=== PATIENT | female | born 1965 | race Caucasian/White ===

== ENCOUNTER 2018-02-27 20:24 | Observation (INO) | payer OTHER ==
--- NOTE | 2018-02-27 21:20 | RAD ---
EXAM: CHEST ONE VIEW PORTABLE: 02/27/18 HISTORY: 52-year-old female with history of chest pain. Surgical clips are noted in the region of the AP window with what appears to be a somewhat high posit ioned aortic knob although this is stable and unchanged dating back to old exams from 08/30/17. Heart s ize is within normal limits. The lungs are clear. IMPRESSION: Postsurgical changes possibly within the AP window region with a somewhat high riding aortic knob but overall stable. No acute process. POS: SHOAIB
[2018-02-27 21:40] LABS: Hemoglobin 10.2 g/dL (12.0-16.0); Mean Corpuscular HGB CONC 31.7 g/dL (32.0-36.0); Mean Corpuscular Hemoglobin 22.1 pg (27.0-31.0); Mean Corpuscular Volume 69.7 fL (78.0-98.0); Mean Platelet Volume 8.6 fL (7.4-10.4); Platelet Count 309 thou/uL (130-400); RBC Distribution Width 19.8 % (11.5-14.5); Red Blood Cell (RBC) Count 4.63 mill/uL (4.20-5.40); White Blood Cell (WBC) Count 9.6 thou/uL (4.8-10.8)
[2018-02-27 21:54] LABS: #Eosinphils 0.1 thou/uL (0.0-0.7); #Lymphocytes 1.3 thou/uL (1.20-3.40); #Monocytes 0.5 thou/uL (0.11-0.59); #Neutrophils 7.6 thou/uL (1.40-6.50); %Basophils 0.1 % (0.0-1.0); %Eosinophils 0.9 % (0.0-10.0); %Lymphocytes 13.9 % (21.0-51.0); %Monocytes 5.2 % (0.0-10.0); %Neutrophils 79.8 % (42.0-75.0); ALT (SGPT) 8 U/L (8-55); AST (SGOT) 8 U/L (5-34); Albumin 3.7 g/dL (3.5-5.0); Alkaline Phosphatase 103 U/L (40-150); Anion Gap 13 mmol/L (10-20); Anisocytosis SLIGHT = 6-15 cells (100X) (0-5/hpf); BUN (Urea Nitrogen) 22 mg/dL (7.0-18.7); Bilirubin, Total 0.3 mg/dL (0.2-1.2); CK (CPK) 18 U/L (29-168); Calc. Creatinine Clearance 0 mL/min (70-130); Calcium 9.2 mg/dL (7.8-10.44); Carbon Dioxide 22 mmol/L (22-29); Chloride 107 mmol/L (98-107); Estimated GFR-MDRD 45; Globulin 3.9 g/dL (2.4-3.5); Glucose 161 mg/dL (70-105); Hypochromia SLIGHT = 6-15 cells (100X) (0-5/hpf); Lipase 51 U/L (8-78); MDiff Complete? YES; Microcytosis SLIGHT = 6-15 cells (100X) (0-5/hpf); Potassium 4.6 mmol/L (3.5-5.1); Protein, Total 7.6 g/dL (6.0-8.3); Sodium 137 mmol/L (136-145)
[2018-02-28] MEDS ORDERED: Zolpidem Tartrate 5 MG TAB PO PRN (00:13)
[2018-02-28] MEDS ORDERED: Acetaminophen 325 MG TAB PO PRN (00:13)
[2018-02-28] MEDS ORDERED: Senokot S 8.6-50 MG TAB PO PRN (00:13)
[2018-02-28] MEDS ORDERED: Loperamide HCl 2 MG CAP PO PRN (00:13)
[2018-02-28] MEDS ORDERED: Bisacodyl 5 MG TAB PO PRN (00:13)
[2018-02-28] MEDS ORDERED: Ondansetron ODT 4 MG TAB PO PRN (00:13)
[2018-02-28] MEDS ORDERED: Bisacodyl 10 MG SUPP PR PRN (00:13)
[2018-02-28] MEDS ORDERED: HYDROcodone/Acetaminophen 5/325 mg Tablet PO PRN (00:13)
[2018-02-28] MEDS ORDERED: Calcium Carbonate 500 MG ChewTAB PO PRN (00:13)
[2018-02-28] MEDS ORDERED: Ondansetron PF 4 MG/2 ML Vial IVP PRN (00:13)
[2018-02-28] MEDS ORDERED: Pepto Bismol Chew TAB PO PRN (00:26)
[2018-02-28] MEDS ORDERED: Loratadine 10 MG TAB PO PRN (00:26)
[2018-02-28 00:27] VITALS: BMI 49.6
--- NOTE | 2018-02-28 00:55 | HP ---
PRIMARY CARE PHYSICIAN: [facility] Call admission. REASON FOR ADMISSION: Chest pain. HISTORY OF PRESENT ILLNESS: This is a 52-year-old female, who has multiple medical problems including hypertension, anxiety, depression, gastroesophageal reflux disease, asthma, dyslipidemia, and morbid obesity who presented to emergency room with complaint of chest pain. The patient's chest pain is substernal in location, heaviness in nature, 5/10 in intensity, started after moving furniture at home, lasted for a few minutes and subsided by itself after rest. The patient lately having recurrent exertion-related chest pain. She denies any palpitation, syncope. Today, she was feeling lightheadedness. She was having a little bit diaphoresis. She did not have any syncopal episodes. She denies any orthopnea, PND, or leg swelling. The patient does have history of coronary artery disease and she has not seen her appeals and generalist clerk for several years. The patient was resisting to come to the hospital, but the family member insisted to visit emergency room. When she came to emergency room, the patient's pain was completely subsided. In the emergency room, routine blood test showed microcytic anemia. Her chest x-ray was unremarkable. REVIEW OF SYSTEMS: CONSTITUTIONAL: Negative for weight loss or gain, ability to conduct usual activities. SKIN: Negative for rash, itching. EYES: Negative for double vision, pain. ENT/MOUTH: Negative for nose bleeding, neck stiffness, pain, tenderness. CARDIOVASCULAR: Negative for palpitations, dyspnea on exertion, orthopnea. RESPIRATORY: Negative for shortness of breath, wheezing, cough, hemoptysis, fever or night sweats. GASTROINTESTINAL: Negative for poor appetite, abdominal pain, heartburn, nausea, vomiting, constipation, or diarrhea. GENITOURINARY: Negative for urgency, frequency, dysuria, nocturia. MUSCULOSKELETAL: Negative for pain, swelling. NEUROLOGIC/PSYCHIATRIC: Negative for anxiety, depression. ALLERGY/IMMUNOLOGIC: Negative for skin rash, bleeding tendency. Please see my HPI for pertinent positives and negatives. All other review of systems reviewed and negative except as mentioned in HPI. PAST MEDICAL HISTORY: 1. Chronic iron-deficiency anemia. 2. Morbid obesity. 3. Hypertension. 4. Dyslipidemia. 5. Asthma. 6. History of coronary artery disease. PAST SURGICAL HISTORY: The patient has patent ductus arteriosus repaired when she was kid, tubal ligation, left ankle surgery. PAST PSYCHIATRIC HISTORY: Anxiety, depression, and bipolar disorder. SOCIAL HISTORY: The patient lives at home. No history of tobacco, alcohol, or illicit drug abuse. FAMILY HISTORY: No family history of coronary artery disease, stroke, or cancer. ALLERGIES: CODEINE, NITROGLYCERIN, AND TRILEPTAL. CURRENT HOME MEDICATION: 1. Lisinopril 10 mg daily. 2. Prozac 60 mg daily. 3. Claritin 10 mg daily. 4. Ranitidine 150 mg b.i.d. 5. Pepto-Bismol p.r.n. 6. Singular 10 mg daily. 7. Flexeril 10 mg t.i.d. p.r.n. 8. Pravastatin 10 mg p.o. at bedtime. 9. Diclofenac topical application b.i.d. p.r.n. EMERGENCY ROOM COURSE: Reviewed. PHYSICAL EXAMINATION: VITAL SIGNS: Currently blood pressure 114/62, pulse 92, respiratory rate 18, temperature 98.5, saturation 100% on room air and weight 127 kg. GENERAL: The patient is currently alert, awake. No obvious acute distress. HEENT: Head; normocephalic, atraumatic. Eyes; pupils round and reactive to light. Extraocular muscle intact. ENT; oropharynx within normal limits. Moist mucous membranes. No oral lesion. No pharyngeal erythema. No exudate. NECK: Supple. No JVD. No thyromegaly. No carotid bruit. No jugular venous distention. LUNGS: Clear to auscultation without any rhonchi or rales. CARDIAC: S1, S2. Regular without any murmur. No gallop. No rub. ABDOMEN: Obesity present. Bowel sounds present. Nontender. Nondistended. No organomegaly. No mass. No suprapubic tenderness. BACK: Unremarkable. No CVA tenderness. EXTREMITIES: Upper extremities; passive movement of all joints are normal. Lower extremities; no edema. Good distal pulsation. No calf tenderness. SKIN: No skin rash. Pale skin noted. NEUROLOGIC: Nonfocal examination. SIGNIFICANT LABORATORY DATA: EKG showing sinus tachycardia. A chest x-ray based on my review, no acute cardiopulmonary process. CBC; WBC 9.6, hemoglobin 10.2, MCV 69.7, platelets 309. BMP; sodium 137, potassium 4.6, chloride 107, carbon dioxide 22, BUN 22, creatinine 1.27, glucose 161, calcium 9.2. LFTs; AST 8, ALT 8, alkaline phosphatase 103, albumin 3.7. Cardiac enzyme negative. BNP less than 10. Lipase 51. Chest x-ray based on my review, no acute cardiopulmonary process. ASSESSMENT/PLAN: 1. Chest pain. The patient's chest pain description is atypical based on probably based on her age and sex, probability of coronary artery disease is mild to moderate. We will need to rule out acute coronary syndrome. We will do serial cardiac enzyme x3. We will check lipid profile tomorrow morning for restrictive occasion. We will perform exercise Cardiolite stress test tomorrow morning for diagnostic reason. Check lipid profile tomorrow morning for risk stratification. Meanwhile, we will continue with aspirin 325 mg p.o. daily. 2. Iron deficiency anemia. We will check ferritin level. If ferritin level is low, then we will consider iron infusion tomorrow. Continue ferrous sulfate 325 mg p.o. daily. 3. Asthma. Continue DuoNeb q.6 hours p.r.n. and continue Singulair 10 mg daily. 4. Hypertension. Continue lisinopril 10 mg p.o. at bedtime. 5. Dyslipidemia. Continue pravastatin 10 mg p.o. nightly and check lipid profile tomorrow morning. 6. Anxiety and depression. Continue fluoxetine 60 mg p.o. at bedtime. 7. Morbid obesity with BMI of 49. Dietary education given. Weight loss education given. Healthy lifestyle measure discussed with the patient. 8. Chronic low back pain. Continue Flexeril 10 mg t.i.d. p.r.n. 9. Deep venous thrombosis prophylaxis, not needed because we are expecting discharge in 24 hours. 10. Gastrointestinal prophylaxis. Pepcid 20 mg p.o. b.i.d. CODE STATUS: The patient is full code. The patient does not have any surrogate decision maker. DISPOSITION/PLAN: Based on clinical course, likely within 24 hours. Plan of care discussed with the patient and family member at bedside. Job ID: [id number]
[2018-02-28 01:07] LABS: Troponin I Less than 0.010 ng/mL (< 0.028)
[2018-02-28] MEDS ORDERED: FLUoxetine HCl 20 MG CAP PO SCH ×2 (01:30→21:00)
[2018-02-28 03:57] LABS: Cardiac Risk 3.8 (Less than 4.5)
[2018-02-28 04:01] LABS: Troponin I Less than 0.010 ng/mL (< 0.028)
[2018-02-28] MEDS ORDERED: Nitroglycerin 2% Ointment 1 INCH/1 GM Packet TOP SCH (06:00)
[2018-02-28] MEDS: Ferrous Sulfate 325 MG TAB PO SCH (07:50)
[2018-02-28] MEDS: Cyclobenzaprine 10 MG TAB PO SCH ×3 (07:50→20:58)
[2018-02-28] MEDS: Aspirin 325 MG TAB PO SCH (07:50)
[2018-02-28] MEDS: Famotidine 20 MG TAB PO SCH ×2 (07:50→20:58)
[2018-02-28] MEDS: Montelukast Sodium 10 mg Tablet PO SCH (07:51)
[2018-02-28] MEDS ORDERED: Regadenoson 0.4 MG/5 ML SYRINGE ONE (09:18)
--- NOTE | 2018-02-28 20:14 | PDOC.PN ---
- Subjective Encounter Start Date: 02/28/18 Encounter Start Time: 09:45 Subjective: Patient examined -: Denies current chest pain, SOB -: Denies complaints - Objective Resuscitation Status - Order Detail: 02/27/18 22:19 Resuscitation Status Routine Resuscitation Status: FULL: Full Resuscitation Vital Signs & Weight: Vital Signs (12 hours) Temp Pulse Resp BP Pulse Ox 02/28/18 19:31 98.5 F 106 H 16 121/58 L 100 02/28/18 15:13 98.4 F 96 16 131/56 L 95 02/28/18 12:00 98.6 F 104 H 16 126/58 L 98 Weight Weight 127.097 kg I&O: 02/27/18 02/28/18 03/01/18 06:59 06:59 06:59 Intake Total 240 800 Balance 240 800 Result Diagrams: 02/27/18 21:20 02/27/18 21:20 Additional Labs: Accuchecks 02/28/18 02/28/18 16:27 03:30 POC Glucose 152 H 138 H Phys Exam - Physical Examination HEENT: PERRLA, moist MMs Neck: no nodes, no JVD Respiratory: no wheezing, clear to auscultation bilateral Cardiovascular: RRR Gastrointestinal: soft, non-tender Musculoskeletal: no edema, pulses present Neurological: non-focal, normal sensation Lymphatic: no nodes Psychiatric: normal affect, A&O x 3 Skin: no rash, normal turgor Dx/Plan (1) Chest pain Code(s): R07.9 - CHEST PAIN, UNSPECIFIED Status: Acute (2) HTN (hypertension) Code(s): I10 - ESSENTIAL (PRIMARY) HYPERTENSION Status: Chronic (3) GERD (gastroesophageal reflux disease) Code(s): K21.9 - GASTRO-ESOPHAGEAL REFLUX DISEASE WITHOUT ESOPHAGITIS Status: Chronic - Plan cont current plan of care Will have resting stress test in AM -: Will repeat labs, trend VS -: Francisco NIEVES tomorrow if stress test is negative * .
[2018-02-28] MEDS ORDERED: Pravastatin Sodium 20 MG TAB PO SCH (21:00)
[2018-02-28] MEDS ORDERED: Lisinopril 10 MG TAB PO SCH (21:00)
[2018-03-01 05:11] LABS: #Eosinphils 0.2 thou/uL (0.0-0.7); #Lymphocytes 1.7 thou/uL (1.20-3.40); #Monocytes 0.5 thou/uL (0.11-0.59); #Neutrophils 4.4 thou/uL (1.40-6.50); %Basophils 0.4 % (0.0-1.0); %Eosinophils 2.9 % (0.0-10.0); %Lymphocytes 25.2 % (21.0-51.0); %Monocytes 7.4 % (0.0-10.0); %Neutrophils 64.1 % (42.0-75.0); Hemoglobin 9.8 g/dL (12.0-16.0); Mean Corpuscular HGB CONC 31.6 g/dL (32.0-36.0); Mean Corpuscular Hemoglobin 22.4 pg (27.0-31.0); Mean Corpuscular Volume 70.7 fL (78.0-98.0); Mean Platelet Volume 9.3 fL (7.4-10.4); Platelet Count 252 thou/uL (130-400); RBC Distribution Width 19.1 % (11.5-14.5); Red Blood Cell (RBC) Count 4.37 mill/uL (4.20-5.40); White Blood Cell (WBC) Count 6.8 thou/uL (4.8-10.8)
[2018-03-01 05:35] LABS: ALT (SGPT) 9 U/L (8-55); AST (SGOT) 8 U/L (5-34); Albumin 3.4 g/dL (3.5-5.0); Alkaline Phosphatase 94 U/L (40-150); Anion Gap 9 mmol/L (10-20); BUN (Urea Nitrogen) 21 mg/dL (7.0-18.7); Bilirubin, Total 0.3 mg/dL (0.2-1.2); Calc. Creatinine Clearance 126 mL/min (70-130); Calcium 9.2 mg/dL (7.8-10.44); Carbon Dioxide 24 mmol/L (22-29); Chloride 104 mmol/L (98-107); Estimated GFR-MDRD 53; Globulin 3.4 g/dL (2.4-3.5); Glucose 140 mg/dL (70-105); Potassium 4.3 mmol/L (3.5-5.1); Protein, Total 6.8 g/dL (6.0-8.3); Sodium 133 mmol/L (136-145)
[2018-03-01] MEDS: Famotidine 20 MG TAB PO SCH (07:51)
[2018-03-01] MEDS: Ferrous Sulfate 325 MG TAB PO SCH (07:51)
[2018-03-01] MEDS: Aspirin 325 MG TAB PO SCH (07:51)
[2018-03-01] MEDS: Montelukast Sodium 10 mg Tablet PO SCH (07:51)
[2018-03-01] MEDS: Cyclobenzaprine 10 MG TAB PO SCH (07:51)
--- NOTE | 2018-03-01 12:01 | NM ---
NUCLEAR MEDICINE CARDIAC STRESS TEST WITH EJECTION FRACTION: HISTORY: Chest pain. RI. Coronary artery disease. Hypertension. Dyslipidemia. COMPARISON: None. FINDINGS: Stress and rest performed after the intravenous administration of 31.6 and 29 mCi technetium-99m sest amibi, respectively. No evidence of scar or ischemia. Ejection fraction 60%. Normal wall motion. IMPRESSION: Normal exam. POS: SHOAIB
[2018-03-01 12:03] VITALS: BP 103/56; TEMP 98.4
--- NOTE | 2018-03-02 01:35 | DIS ---
DATE OF ADMISSION: 02/27/2018 DATE OF DISCHARGE: 03/01/2018 PRIMARY CARE PHYSICIAN: Matti Aj MD. CONSULTANTS: None. CODE STATUS: Full. PROCEDURES: The patient had a chest x-ray. No acute process. The patient had a nuclear stress test, which showed no evidence of scar or ischemia. Ejection fraction 60%. Normal wall motion. Impression was normal exam. DISCHARGE DIAGNOSES: 1. Chest pain, atypical. 2. Iron deficiency anemia. We will continue the ferrous sulfate 325 mg. 3. Asthma. Continue her home medications. 4. Hypertension. 5. Dyslipidemia. 6. Anxiety and depression. 7. Morbid obesity. 8. Chronic low back pain. REVIEW OF SYSTEMS: The patient was examined prior to discharge and denying any complaints. Denies any headache, chest pain, palpitations, shortness of breath, abdominal pain, and is anxious to return home. All other systems were reviewed and negative unless mentioned in the hospital course. PHYSICAL EXAMINATION: VITAL SIGNS: Temperature is 98.8, pulse is 102, O2 sats are 95% on room air, blood pressure 103/56, 119/58 earlier this morning. CONSTITUTIONAL: The patient appears nontoxic. The patient is pacing in the room, appears pain free. He is alert and oriented to person, place, and time. HEAD AND EYES: Head is atraumatic and normocephalic. Eyes, pupils are equal, round, and reactive to light. Extraocular muscles are intact. ENT: Mouth exam is normal. Mucous membranes are moist. NECK: Normal range of motion. Trachea is midline. RESPIRATORY/CHEST: breath sounds are clear. No signs of respiratory distress. CARDIOVASCULAR: Heart sounds are normal. ABDOMEN: Nontender. Bowel sounds are heard. BACK: Normal inspection. Normal range of motion. EXTREMITIES: Upper extremity, normal inspection. Normal range of motion. Motor strength is normal. Sensation is intact. Lower extremity, normal inspection. Normal range of motion. Motor strength is normal. Sensation is intact. Pedal pulses are normal bilaterally. There is no edema noted. NEURO: The patient is oriented to person, place, and time. No focal motor or sensory deficits. SKIN: Warm, dry, and normal in color. HOSPITAL COURSE: The patient presented to the emergency room on 02/27/2018 for chest pain. The patient reports that she was moving furniture when she began having the chest pain. By the time EMS arrived, it had resolved. They gave her aspirin, transported her to the emergency room where she was continued a workup. She stated that the chest pain was associated with some nausea and shortness of breath. Currently, all is resolved. The patient had serial troponins where troponins were undetectable. The patient had a stress test, findings above, which was negative. The patient was eager to return home. The patient should follow up with primary care within the next week. MEDICATIONS: Home medications will be restarted: 1. Aspirin 81 mg p.o. b.i.d. 2. Bismuth 262 mg p.o. daily. 3. Flexeril 10 mg p.o. t.i.d. 4. Fluoxetine 60 mg p.o. at night. 5. Lisinopril 10 mg p.o. at night. 6. Loratadine 10 mg p.o. p.r.n. 7. Singular 10 mg p.o. daily. 8. Pravastatin 10 mg p.o. at night. 9. Tizanidine 150 mg p.o. b.i.d. 10. We will start Protonix 40 mg p.o. daily x2 weeks. ALLERGIES: INCLUDE: 1. CODEINE. 2. NITROGLYCERIN. 3. OXCARBAZEPINE. DISCHARGE CONDITION: Stable. DISPOSITION: The patient will be discharged home. DISCHARGE INSTRUCTIONS: The patient should follow up with Dr. Aj within the next week. Job ID: [id number]
== END 2018-03-01 14:31 | disposition home or self-care (01) ==
LOC: EEVIPCON 20:24 → ERS 20:24 → 2SW 22:07
PROVIDERS: ADMIT Internal Medicine; ATTEND Internal Medicine
DX: R07.89 Other chest pain (principal); D50.9 Iron deficiency anemia, unspecified; J45.909 Unspecified asthma, uncomplicated; I10 Essential (primary) hypertension; E78.5 Hyperlipidemia, unspecified; F31.9 Bipolar disorder, unspecified; F41.9 Anxiety disorder, unspecified; E66.01 Morbid (severe) obesity due to excess calories; Z68.43 Body mass index [BMI] 50.0-59.9, adult; I25.10 Atherosclerotic heart disease of native coronary artery without angina pectoris; K21.9 Gastro-esophageal reflux disease without esophagitis; Z98.51 Tubal ligation status; Z88.5 Allergy status to narcotic agent; Z88.8 Allergy status to other drugs, medicaments and biological substances; Z79.899 Other long term (current) drug therapy; Z98.890 Other specified postprocedural states; Z79.82 Long term (current) use of aspirin
CPT/HCPCS: 36415; 36416; 71045; 78452; 80053; 80061; 82550; 82728; 83690; 83880; 84484; 85025; 90471; 90686; 93005; 93017; 94760; A9500; G0008; G0378; J2785

== ENCOUNTER 2018-04-22 15:54 | Outpatient (CLI) | payer OTHER ==
[~2018-04-22 15:54] MED LIST: Iopamidol 370 76% 100 ML VIAL ONE
--- NOTE | 2018-04-22 18:46 | CT ---
CT OF THE THORAX WITH AND WITHOUT IV CONTRAST 04/22/18 INDICATION: Evaluate pulmonary nodules. COMPARISON: None. FINDINGS: There is an enhancing partially cystic, partially solid, partially calcified mass within the anterior mediastinum, anterior to the great vessels of the neck, but separate from the thyroid gland, measuri ng 6.0 x 6.4 x 3.9 cm in greatest cranial-caudad, mediolateral and AP dimensions respectively. The le kyle is causing some mild inferior mass effect on the traversing left brachiocephalic vein. There is a few mildly prominent prevascular lymph nodes, the largest measuring 8 mm on image 21 of se silvana 3. No pathologically enlarged lymph nodes are evident. There is mild nonspecific subsegmental volume loss within the lingula as well as portions of the lowe r lobes and posterior segment of the right upper lobe. The visualized upper abdomen demonstrates no e nlarged lymphadenopathy or splenomegaly. The spleen measures just over 12 cm. There is a prominent ga llstone within the gallbladder. There are scattered degenerative and osteoarthritic change. IMPRESSION: 1. 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 This lesion does appears to have a fat plane it from the lower aspect of the thyroid gland. Differential considerations include entities such as a thymoma or possi asya a germ cell tumor. Lymphoma is not entirely excluded. Substernal thyroid goitier is felt to be un likely. Metastatic disease is not entirely excluded. Cardiothoracic surgical consultation is recommen ded. 2. Nonspecific scattered areas of subsegmental volume loss within both lungs. No suspicious pulm onary nodule is identified. There is a calcified granuloma in the right upper lobe. 3. Small hiatal hernia. 4. Cholelithiasis. Code T POS: TPC
== END 2018-04-22 15:55 | disposition home or self-care (01) ==
LOC: BICCT 15:54
PROVIDERS: ATTEND Family Medicine
DX: R91.1 Solitary pulmonary nodule (principal); J98.59 Other diseases of mediastinum, not elsewhere classified; J84.10 Pulmonary fibrosis, unspecified; K44.9 Diaphragmatic hernia without obstruction or gangrene; K80.20 Calculus of gallbladder without cholecystitis without obstruction
CPT/HCPCS: 71260; Q9967

== ENCOUNTER 2018-09-10 09:40 | Outpatient (CLI) | payer OTHER ==
--- NOTE | 2018-09-10 12:06 | CT ---
CT CHEST WITH IV CONTRAST: HISTORY: Mediastinal mass. Dyspnea. COMPARISON: 04/22/2018 FINDINGS: The heterogeneous mass in the superior-anterior mediastinum, with solid, cystic, and calcific compone nts, is stable, measuring 6.5 x 4 x 6 cm. Mild mass effect, inferiorly, on the traversing left brach iocephalic vein, is again seen. Low density lesions in the thyroid gland are stable. Mildly prominent prevascular lymph nodes are st able as well. No hilar or axillary mass or lymphadenopathy is seen. No pleural or pericardial effusions are identified. Small calcified granuloma in the right upper lob e is again seen. A 5 mm parenchymal nodule in the left lower lobe is stable. Upper abdominal tomograms demonstrate cholelithiasis. A small hiatal hernia is again seen. There are degenerative changes in the spine. IMPRESSION: Stable examination since 04/22/2018. POS: SHOAIB
[2018-09-10] MEDS ORDERED: Iopamidol 370 76% 100 ML VIAL ONE (13:43)
== END 2018-09-10 09:41 | disposition home or self-care (01) ==
LOC: CT 09:40
PROVIDERS: ATTEND Thoracic Surgery (Cardiothoracic Vascular Surgery)
DX: J98.59 Other diseases of mediastinum, not elsewhere classified (principal)
CPT/HCPCS: 71260; 82565; Q9967

== ENCOUNTER 2018-10-10 20:09 | Emergency (ER) | payer OTHER ==
[2018-10-10 20:53] LABS: ALT (SGPT) 7 U/L (8-55); AST (SGOT) 9 U/L (5-34); Alkaline Phosphatase 115 U/L (40-150); Anion Gap 12 mmol/L (10-20); BUN (Urea Nitrogen) 16 mg/dL (9.8-20.1); Bilirubin, Total 0.4 mg/dL (0.2-1.2); Calc. Creatinine Clearance 0 mL/min (70-130); Calcium 9.5 mg/dL (7.8-10.44); Carbon Dioxide 24 mmol/L (22-29); Chloride 105 mmol/L (98-107); Estimated GFR-MDRD 50; Globulin 3.3 g/dL (2.4-3.5); Glucose 122 mg/dL (70-105); Protein, Total 7.3 g/dL (6.0-8.3); Sodium 137 mmol/L (136-145)
[2018-10-10 20:55] LABS: Hemoglobin 7.8 g/dL (12.0-16.0); Mean Corpuscular HGB CONC 30.3 g/dL (32.0-36.0); Mean Corpuscular Hemoglobin 19.5 pg (27.0-31.0); Mean Corpuscular Volume 64.4 fL (78.0-98.0); Mean Platelet Volume 4.8 fL (7.4-10.4); Platelet Count 274 thou/uL (130-400); RBC Distribution Width 19.2 % (11.5-14.5); Red Blood Cell (RBC) Count 3.98 mill/uL (4.20-5.40); White Blood Cell (WBC) Count 6.4 thou/uL (4.8-10.8)
[2018-10-10 21:08] LABS: #Basophils 0.1 thou/uL (0.0-0.2); #Eosinphils 0.2 thou/uL (0.0-0.7); #Monocytes 0.3 thou/uL (0.11-0.59); #Neutrophils 4.8 thou/uL (1.40-6.50); %Lymphocytes 15.8 % (21.0-51.0); %Neutrophils 75.3 % (42.0-75.0); Anisocytosis MODERATE=16-30 cells (100X) (0-5/hpf); MDiff Complete? YES; Microcytosis SLIGHT = 6-15 cells (100X) (0-5/hpf); Platelet Morphology Comment Appears Adequate; Reflex for Review?? YES
[2018-10-10 21:15] LABS: Acetaminophen Less than 6.0 mcg/mL (10.0-30.0); Alcohol Less than 10 mg/dL (Less than 10); Salicylate Less than 8.0 mg/dL (15.0-30.0)
--- NOTE | 2018-10-10 21:24 | RAD ---
PORTABLE CHEST ONE VIEW: 10/10/18 at 8:45 p.m. HISTORY: Generalized weakness. FINDINGS: Comparison made with exam of 08/08/18. The heart size is prominent but stable. No focal areas of consolidation, pneumothoraces, alexis pulmo nary edema or pleural effusions are seen. IMPRESSION: No acute process. POS: CLARICEA
[2018-10-10 21:44] LABS: Bacteria/HPF 4+ HPF (None Seen); Bilirubin Negative (Negative); Blood, Urine 1+ (Negative); Clarity Clear (Clear); Glucose, Urine (Dipstick) Normal (Negative); Leukocyte 250 Leu/uL (Negative); Nitrite Negative (Negative); Protein, Urine (Dipstick) 10 mg/dL (Neg-Trace); Squamous Epithelial 0-3 HPF (0-3); WBC/HPF 21-50 HPF (0-3)
[2018-10-10 21:53] LABS: Amphetamine Not Detected (NotDetected); Barbiturates Screen Not Detected (NotDetected); Benzodiazepine Screen Detected (NotDetected); Cocaine Metabolite Screen Not Detected (NotDetected); Medtox Control Line Valid? VALID (VALID); Medtox Reader # READER 4; Methadone Not Detected (NotDetected); Methamphetamine Not Detected (NotDetected); Opiate Screen Not Detected (NotDetected); Oxycodone Screen Not Detected (NotDetected); Phencyclidine (PCP) Not Detected (NotDetected); THC/Cannabinoid Screen Not Detected (NotDetected); Tricyclic Screen Not Detected (NotDetected)
[2018-10-10] MEDS ORDERED: cefTRIAXone\\ROCEPHIN 1 GM VIAL ONE (22:58)
== END 2018-10-10 23:50 | disposition home or self-care (01) ==
LOC: ERS 20:09
DX: N39.0 Urinary tract infection, site not specified (principal); R53.1 Weakness; D50.9 Iron deficiency anemia, unspecified; E78.5 Hyperlipidemia, unspecified; E78.00 Pure hypercholesterolemia, unspecified; J45.909 Unspecified asthma, uncomplicated; I25.2 Old myocardial infarction; F31.9 Bipolar disorder, unspecified; Z79.899 Other long term (current) drug therapy; Z79.82 Long term (current) use of aspirin; Z79.51 Long term (current) use of inhaled steroids; Z79.52 Long term (current) use of systemic steroids
CPT/HCPCS: 71045; 80053; 80306; 80307; 81003; 81015; 84443; 85025; 85060; 87077; 87086; 87186; 93005; 96361; 96365; J0696

== ENCOUNTER 2018-11-25 15:35 | Inpatient (IN) | payer OTHER ==
[2018-11-25 12:17] LABS: Hemoglobin 7.6 g/dL (12.0-16.0); Mean Corpuscular HGB CONC 29.8 g/dL (32.0-36.0); Mean Corpuscular Hemoglobin 18.7 pg (27.0-31.0); Mean Corpuscular Volume 62.7 fL (78.0-98.0); Platelet Count 245 thou/uL (130-400); Red Blood Cell (RBC) Count 4.06 mill/uL (4.20-5.40); White Blood Cell (WBC) Count 5.6 thou/uL (4.8-10.8)
[2018-11-25 12:37] LABS: ALT (SGPT) 9 U/L (8-55); AST (SGOT) 11 U/L (5-34); Albumin 3.9 g/dL (3.5-5.0); Alkaline Phosphatase 94 U/L (40-110); Anion Gap 10 mmol/L (10-20); BUN (Urea Nitrogen) 16 mg/dL (9.8-20.1); Bilirubin, Total 0.3 mg/dL (0.2-1.2); Calc. Creatinine Clearance 0 mL/min (70-130); Calcium 9.2 mg/dL (7.8-10.44); Carbon Dioxide 22 mmol/L (22-29); Chloride 107 mmol/L (98-107); Estimated GFR-MDRD 45; Glucose 110 mg/dL (70-105); Potassium 3.8 mmol/L (3.5-5.1); Protein, Total 6.9 g/dL (6.0-8.3); Sodium 135 mmol/L (136-145)
[2018-11-25] MEDS ORDERED: Benzonatate 100 MG CAP PO PRN (16:27)
[2018-11-25] MEDS ORDERED: Ibuprofen 800 MG TAB PO PRN (16:28)
[2018-11-25 17:10] LABS: INR-International Normal Ratio 1.1; PTT 23.2 SEC (22.9-36.1); Prothrombin Time 14.2 SEC (12.0-14.7)
[2018-11-25] MEDS ORDERED: Fluticasone Propionate HFA 44 MCG AER INH SCH (18:30)
[2018-11-25] MEDS: Montelukast Sodium 10 mg Tablet PO SCH (20:16)
[2018-11-25] MEDS: Simvastatin 5 MG TAB PO SCH (20:16)
[2018-11-25] MEDS: FLUoxetine HCl 20 MG CAP PO SCH (20:34)
[2018-11-25] MEDS: Lisinopril 10 MG TAB PO SCH (20:34)
[2018-11-26 05:41] LABS: #Eosinphils 0.2 thou/uL (0.0-0.7); #Lymphocytes 1.3 thou/uL (1.20-3.40); #Monocytes 0.3 thou/uL (0.11-0.59); #Neutrophils 3.7 thou/uL (1.40-6.50); %Eosinophils 3.3 % (0.0-10.0); %Lymphocytes 23.4 % (21.0-51.0); %Neutrophils 67.3 % (42.0-75.0); Anisocytosis SLIGHT = 6-15 cells (100X) (0-5/hpf); Hemoglobin 8.6 g/dL (12.0-16.0); MDiff Complete? YES; Mean Corpuscular HGB CONC 31.1 g/dL (32.0-36.0); Mean Corpuscular Hemoglobin 21.2 pg (27.0-31.0); Mean Platelet Volume 4.7 fL (7.4-10.4); Microcytosis SLIGHT = 6-15 cells (100X) (0-5/hpf); Platelet Count 228 thou/uL (130-400); RBC Distribution Width 22.3 % (11.5-14.5); Red Blood Cell (RBC) Count 4.06 mill/uL (4.20-5.40); White Blood Cell (WBC) Count 5.5 thou/uL (4.8-10.8)
--- NOTE | 2018-11-26 07:22 | HP ---
CHIEF COMPLAINT: Malaise, lethargy, weakness, and chest pain. HISTORY OF PRESENT ILLNESS: The patient is a 53-year-old woman, who reports having had a "heart attack" in [place] in 2008. At that time, she was found to have had minimal obstructive disease on cardiac catheterization, but was told that she had a mass in the upper part of her chest. She has had several presentations for chest pain and at one of these presentation, she was apparently told that she had a lump on her lung, prompting her to entertain some concern about the nature of this mass in upper portion of her chest. The patient reports that even as a child she would have difficulty breathing when she would lie flat and that she gets short of breath easily. When I first saw her in August of this year, she had 6 presentations to the [place] emergency room for chest pain and/or shortness of breath. 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 In March 2008, a CT scan at [place] showed the same mass of similar dimensions are perhaps a little bit bigger and a repeat scan that I had done in anticipation of resection had similar findings bothersome heterogeneity to the thyroid. There does appear to be a distinct plane this mass and thyroid gland. Over the last 6 weeks, she has gone to the emergency room two more times and she had phoned the office saying that she felt like she was starting to have more problems with shortness of breath when she laid down. Surgery had been tentatively scheduled , but issues with getting approval through insurance first for tumor markers and then for surgery itself and cause considerable delays. Over the last 2 or 3 weeks, she has been feeling much weaker and sleeping a lot. She reports chest pain and shortness of breath, although the message has been relayed to me through office about positional nature of her shortness of breath. She denied any difficulty lying down and said that she sleeps in her bed, typically on her side, but she does not have to prop herself up with pillows or sleep in a recliner on the sofa sitting up. During this period of time, a known chronic microcytic anemia that she says has been attributed to iron deficiency has worsened. She denies any dark or maroon stools. She denies any hematemesis. She did have a little bit of vaginal spotting a month or two ago, but it has really been about 2 years and she has regularly had periods and she has never had menorrhagia. Her family interjects that she seems to bruise easily and trivial scratches seem to bleed in inordinate amount of time. PAST MEDICAL HISTORY: Significant for hypertension. Reports of coronary artery disease, GE reflux disease, asthma, microcytic anemia, and bipolar disorder. HOME MEDICATIONS: 1. Lisinopril 10 mg a day. 2. Baby aspirin a day. 3. Pravastatin 10 mg a day. 4. Protonix 40 mg a day. 5. Flovent one puff twice a day. 6. Fluticasone propionate one puff twice a day. 7. Montelukast 10 mg a day. 8. Fluoxetine 60 mg a day. 9. Loratadine 10 mg a day. 10. Tessalon Perles 200 mg t.i.d. p.r.n. 11. Ibuprofen 800 mg t.i.d. p.r.n. SOCIAL HISTORY: She denies smoking and drinking alcohol. FAMILY HISTORY: Her mother at age 55 and had hypertension, but she is unclear as to the cause of her mother's or the cause of her father's , who at age 60. REVIEW OF SYSTEMS: As above. PHYSICAL EXAMINATION: GENERAL: She is a pale, obese woman, looks like she feels poorly. VITAL SIGNS: Heart rate is 90, blood pressure is 117/70. She is 5 feet 3 inches and weighs 265 pounds. CHEST: Clear to auscultation. She has regular rate and rhythm with a soft flow murmur at the left upper sternal border. She has some tender fullness at the suprasternal notch. No supraclavicular adenopathy. ABDOMEN: Obese, soft, and nontender. EXTREMITIES: She has no clubbing, cyanosis, or edema. IMAGING STUDIES: Her chest x-ray shows what appeared to be surgical clips in her left hilum or mediastinum. Her CT scan shows heterogeneous mass in the upper anterior mediastinum that appears to be distinct from the relatively heterogeneous thyroid. It pushes the left innominate vein inferiorly essentially bowstring it , bringing it. There are scattered calcifications within the mass. The trach perhaps deviated a little bit toward the right and the mass lies in close approximation to it, but does not appear to form it. LABORATORY DATA: Her laboratory exam shows that in February of this year, her hemoglobin was 9.8 and her MCV 70.7 with a platelet count of 252,000. Over the summer, it is drifted down, dropping to 7.8 in July, 7.8 in September, 7.7 about 3 weeks ago, and 7.6 today. Her white count 5.6, hematocrit 25.5, MCV 62.7, platelets 145,000. Her electrolytes are normal. Her BUN 16, creatinine 1.25, glucose is 110, calcium is 9.2, albumin is 3.9. LFTs are normal. Her alpha-fetoprotein was less than 2. Beta-hCG was less than 1.2. TSH in September was 0.5428. IMPRESSION AND PLAN: Symptomatic anemia in the face of rather large anterior superior mediastinal mass that would now appear to be symptomatic. I am going to admit her from office, draw iron and vitamin studies and reticulocyte count prior to transfusion with the anticipation of transfusing her this evening and proceeding with her surgery tomorrow. I can do a bone marrow biopsy of the sternum. At the time of her sternotomy, can also deal with sampling stool doing a rectal exam when she is in the operating room prior to prep and drape. Job ID: [id number] MTDD
[2018-11-26] MEDS: Aspirin Chewable 81 MG TAB PO SCH (08:45)
[2018-11-26] MEDS: Loratadine 10 MG TAB PO SCH (08:45)
[2018-11-26] MEDS ORDERED: FLUoxetine HCl 20 MG CAP PO SCH (09:00)
[2018-11-26] MEDS ORDERED: Lisinopril 10 MG TAB PO SCH (09:00)
[2018-11-26] MEDS ORDERED: FLU VACC QS2019-20(6MOS UP)/PF 60 MCG/0.5 ML SYRINGE IM ONE ×2 (09:00→21:00)
[2018-11-26] MEDS ORDERED: Glycopyrrolate 0.2 MG/ML 5 ML SYRINGE ONE (11:53)
[2018-11-26] MEDS ORDERED: Rocuronium Bromide 10 MG/ML (10ML VIAL) ONE (11:53)
[2018-11-26] MEDS ORDERED: Ondansetron PF 4 MG/2 ML Vial ONE (11:53)
[2018-11-26] MEDS ORDERED: Dexamethasone 20 MG/5 ML VIAL ONE (11:53)
[2018-11-26] MEDS ORDERED: PROPOFOL 200 MG/20 ML VIAL ONE (11:53)
[2018-11-26] MEDS ORDERED: Lidocaine 1% PF 5 ML VIAL ONE (11:53)
[2018-11-26] MEDS ORDERED: Iron, Sodium Ferric Gluconate 250 MG in Sodium Chloride 0.9% 250 ML 250 ML IVPB SCH (12:00)
[2018-11-26] MEDS ORDERED: Midazolam HCl 2 mg/2 ml Vial ONE (12:19)
[2018-11-26] MEDS ORDERED: Fentanyl 250 MCG/5 ML VIAL ONE (12:19)
[2018-11-26] MEDS ORDERED: Iron Sucrose Complex 200 MG in Sodium Chloride 0.9% 250 ML 250 ML IVPB SCH (14:00)
[2018-11-26] MEDS ORDERED: Ondansetron HCl/PF 4 MG/2 ML Vial IVP PRN ×2 (16:15→17:29)
--- NOTE | 2018-11-26 16:22 | CON ---
DATE OF CONSULTATION: REASON FOR CONSULT: Microcytic anemia. HISTORY OF PRESENT ILLNESS: Ms. Dumont is a 53-year-old female, who was admitted for a mediastinal mass and biopsy. She was noted to have a hemoglobin of 7.6 on admission. Her MCV was 62.7. Iron studies revealed a ferritin of less than 2 and a TIBC of 403. The patient states she has had a longstanding history of iron deficiency anemia initially with a over 33 years ago. She has intermittently taken iron in the past, but it gives her constipation, so she is inconsistent. She continues to have period. However, she states they are light. She denies any melena or hematochezia. She has never had a colonoscopy. Review of labs over the past 12 months show a hemoglobin of 10 in August of 2017 with recent drop to 7.8 in July of 2018. Her MCV back in August of 2017 was low at 63. Her retic count on this admission is 2.5. She complains of fatigue and shortness of breath. Denies any chest pain at this time. No dizziness, syncope, or weakness. PAST MEDICAL HISTORY: 1. Hypertension. 2. Coronary artery disease. 3. Iron deficiency anemia. 4. Morbid obesity. 5. Dyslipidemia. 6. Asthma. 7. Anxiety and depression. 8. Bipolar. PAST SURGICAL HISTORY: 1. Ductus arteriosus repair. 2. Tubal ligation. 3. Ankle surgery. ALLERGIES: TO CODEINE, NITROGLYCERIN, AND TRILEPTAL. HOME MEDICATIONS: 1. Aspirin. 2. Fluoxetine. 3. Ibuprofen. 4. Lisinopril. 5. Loratadine. 6. Montelukast. 7. Protonix. 8. Pravastatin. FAMILY HISTORY: An aunt with breast cancer. SOCIAL HISTORY: Lives in [place] with family. No alcohol, tobacco, or illicit drug use. REVIEW OF SYSTEMS: Ten-point review of systems is negative except for noted in HPI. PHYSICAL EXAMINATION: VITAL SIGNS: Temperature is 98.4, pulse is 86, respiratory rate 18, blood pressure is 123/59, and she is 96% on room air. GENERAL: This is an obese female, in no acute distress. HEENT: Normocephalic, atraumatic. Pupils are equal and reactive to light. NECK: Supple. CARDIOVASCULAR: Regular rate and rhythm. LUNGS: Clear. ABDOMEN: Obese, nontender. There is no organomegaly. Bowel sounds are positive. EXTREMITIES: No clubbing, cyanosis, or edema. SKIN: No rash. HEMATOLOGICAL: No petechiae or purpura. NEUROLOGICAL: Nonfocal. PSYCH: She is alert and oriented and appropriate. PERTINENT LABS AND X-RAYS: Current WBCs 5.5, hemoglobin 8.6, hematocrit 27.6, MCV is 68, and platelets are 228,000. Sodium is 135, potassium 3.8, chloride 107, CO2 is 22, BUN is 16, creatinine 1.25, and calcium 9.2. Iron is 19, TIBC is 403, ferritin is less than 2, bilirubin is 0.3, AST is 11, ALT is 9, alkaline phosphatase is 94. B12 is 306, folate is 8.6. ASSESSMENT: 1. Chronic iron deficiency anemia. 2. Mediastinal mass with planned sternotomy. PLAN: The patient has chronic iron deficiency anemia likely from and menses over the past few years. She has been noncompliant with oral iron secondary to constipation despite stool softener. She has good response to blood transfusion on this admission. Plan to give 2 doses of IV Venofer. She is due for her routine colonoscopy as she is turned 53. We would recommend this be done in the outpatient setting and proceed with the sternotomy and we will follow the results of the biopsy. She will need a repeat CBC in about 4 to 6 weeks. I encouraged her to resume oral iron with more aggressive stool softeners and vitamin C. Thank you for the consult. We will follow her hospital course. Job ID: [id number]
[2018-11-26] MEDS ORDERED: HYDROcodone/Acetaminophen 5/325 mg Tablet PO PRN (16:30)
[2018-11-26] MEDS ORDERED: Ondansetron PF 4 MG/2 ML Vial IVP PRN (16:30)
[2018-11-26] MEDS ORDERED: Fentanyl 100 MCG/2 ML VIAL SLOW IVP PRN ×2 (16:30)
[2018-11-26] MEDS ORDERED: Promethazine HCl 25 MG/ML VIAL ONE (16:33)
[2018-11-26] MEDS ORDERED: Fentanyl 100 MCG/2 ML VIAL ONE (16:33)
--- NOTE | 2018-11-26 16:36 | OP ---
DATE OF PROCEDURE: 11/26/2018 PROCEDURES PERFORMED: Excision of anterior mediastinal mass via median sternotomy, right subclavian central line placement, and 5-Arabic right femoral arterial line placed. PREOPERATIVE DIAGNOSIS: Anterior mediastinal mass. POSTOPERATIVE DIAGNOSIS: Anterior mediastinal mass. ANESTHESIA: General endotracheal anesthesia. INDICATIONS FOR PROCEDURE: The patient is a 53-year-old woman with chronic microcytic anemia attributed to iron deficiency. About 10 years ago, she reports having had a "heart attack" and although, she had minimal coronary artery disease at cardiac catheterization, she was told she had a mass in her chest. She has opted to simply ignore it for a good while in spite of multiple ER visits for chest pain and for shortness of breath. She recently has been having more complaints of shortness of breath, although she is able to sleep on her back without dyspnea. FINDINGS: About a 6 cm mass behind the manubrium extending up into the neck, downwardly displacing the left innominate vein, posteriorly extended to just anterior to the trachea and to the greater curvature of the arch in between the innominate artery and left common carotid artery. NARRATIVE REPORT: After informed consent was obtained, the patient was taken to the operating room, placed in supine position on the operating table. After the induction of general anesthesia, her right upper chest was prepped and draped in sterile fashion and she was placed in Trendelenburg. A triple lumen central line kit was used to place a right subclavian central line for secure IV access. All 3 ports were easily aspirated and flushed and the line and wire advanced without difficulty. The line was secured because of difficulty even with ultrasonographic guidance in placing a radial arterial line, a femoral arterial line was placed. The right groin was prepped and draped in sterile fashion and a 5-Arabic catheter kit was used to cannulate the right femoral artery, where it was palpable at the groin crease. The wire and the line passed easily and the line back bled and flushed well. It was secured and then the patient's torso was prepped and draped in sterile fashion. A median sternotomy was performed. The mass was identified in the anterior superior mediastinum. The superior margin of it was mobilized using a combination of electrocautery, blunt and sharp dissection. It was clear that it was not part of the cervical thyroid, thymic tissue appeared to be adherent to it, but it did not appear to be part of the thymus per se. The cervical extension of the thymus on the left side and the right lobe of the thymic fat pad remained adherent to the tumor as it was dissected off the left innominate vein inferiorly and the pretracheal tissues posteriorly. It extended down to the greater curvature of the aorta in between the innominate artery and left common carotid artery. Dilated veins around it were ligated and divided in the course of this dissection. No nerves adherent to it were seen. The tumor once excised was tacked with suture for orientation and sent to the pathologist for examination. The wound was inspected for hemostasis. A 28-Arabic chest tube was brought out through a separate incision at the epigastric apex of the incision and the tip was placed at the base of the neck in the surgical field. The cut surfaces of the sternum were treated with vancomycin paste and then the sternum was reapproximated with #7 stainless steel wires. The soft tissues were irrigated and the fascia closed over the wires with #1 Vicryl. The very generous subcutaneous layer was reapproximated in 2 layers of 2-0 Vicryl and the skin was closed with Vicryl subcuticular suture, which was then reinforced with a running nylon skin suture. The wound was dressed and the patient was taken to the recovery area in stable condition. Job ID: [id number]
--- NOTE | 2018-11-26 17:14 | RAD ---
PORTABLE CHEST: 11/26/18 HISTORY: Post thoracotomy. COMPARISON: 11/25/18. FINDINGS/IMPRESSION: Postop sternotomy changes are now noted. A central line appears adequately positioned. Mild vascular engorgement. Mild bibasilar atelectasis. POS: OFF
[2018-11-26] MEDS ORDERED: Promethazine HCl 25 MG/ML VIAL SLOW IVP PRN (17:29)
[2018-11-26] MEDS ORDERED: Promethazine HCl 25 MG/ML VIAL IM PRN (17:29)
[2018-11-26] MEDS: Sodium Chloride 0.9% 1,000 ML IV SCH (17:50)
[2018-11-26 18:12] VITALS: BMI 48.6
[2018-11-26] MEDS: FLUoxetine HCl 20 MG CAP PO SCH (21:11)
[2018-11-26] MEDS: Docusate 100 MG CAP PO SCH (21:12)
[2018-11-26] MEDS: Lisinopril 10 MG TAB PO SCH (21:12)
[2018-11-26] MEDS: Simvastatin 5 MG TAB PO SCH (21:13)
[2018-11-26] MEDS: Montelukast Sodium 10 mg Tablet PO SCH (21:13)
[2018-11-26] MEDS: Iron, Sodium Ferric Gluconate 250 MG in Sodium Chloride 0.9% 250 ML 250 ML IVPB SCH (21:19)
[2018-11-27] MEDS: FLUoxetine HCl 20 MG CAP PO SCH ×2 (00:12→21:09)
[2018-11-27] MEDS: Lisinopril 10 MG TAB PO SCH ×2 (00:13→21:09)
[2018-11-27 05:29] LABS: #Lymphocytes 0.4 thou/uL (1.20-3.40); #Monocytes 0.3 thou/uL (0.11-0.59); #Neutrophils 7.9 thou/uL (1.40-6.50); %Eosinophils 0.1 % (0.0-10.0); %Monocytes 3.5 % (0.0-10.0); %Neutrophils 91.4 % (42.0-75.0); Hemoglobin 8.8 g/dL (12.0-16.0); Mean Corpuscular HGB CONC 31.2 g/dL (32.0-36.0); Mean Corpuscular Volume 70.4 fL (78.0-98.0); Mean Platelet Volume 4.9 fL (7.4-10.4); Platelet Count 236 thou/uL (130-400); RBC Distribution Width 22.9 % (11.5-14.5); Red Blood Cell (RBC) Count 3.99 mill/uL (4.20-5.40); White Blood Cell (WBC) Count 8.6 thou/uL (4.8-10.8)
[2018-11-27] MEDS: Sodium Chloride 0.9% 1,000 ML IV SCH ×3 (05:29→21:46)
[2018-11-27 05:46] LABS: Anion Gap 11 mmol/L (10-20); BUN (Urea Nitrogen) 15 mg/dL (9.8-20.1); Calc. Creatinine Clearance 141 mL/min (70-130); Calcium 8.8 mg/dL (7.8-10.44); Carbon Dioxide 24 mmol/L (22-29); Chloride 107 mmol/L (98-107); Estimated GFR-MDRD 64; Glucose 121 mg/dL (70-105); Potassium 4.6 mmol/L (3.5-5.1); Sodium 137 mmol/L (136-145)
[2018-11-27] MEDS ORDERED: Ketorolac Tromethamine 30 MG/ML VIAL IVP SCH (06:00)
[2018-11-27] MEDS ORDERED: Ketorolac Tromethamine 15 MG/ML VIAL IVP SCH ×2 (06:00)
[2018-11-27] MEDS ORDERED: Furosemide 40 MG/4 ML VIAL SLOW IVP SCH (07:15)
--- NOTE | 2018-11-27 08:49 | RAD ---
PORTABLE SUPINE CHEST: INDICATION: Postop thoracotomy. COMPARISON: 11/26/2018. FINDINGS: Cardiomegaly. Mild vascular engorgement. Evidence of patchy bibasilar atelectasis. IMPRESSION: No significant change from yesterday. POS: ARNEL
[2018-11-27] MEDS: Ketorolac Tromethamine 30 MG/ML VIAL IVP SCH ×3 (09:53→21:10)
[2018-11-27] MEDS: Docusate 100 MG CAP PO SCH ×2 (09:54→21:10)
[2018-11-27] MEDS: Aspirin Chewable 81 MG TAB PO SCH (09:56)
[2018-11-27] MEDS: Loratadine 10 MG TAB PO SCH (09:56)
--- NOTE | 2018-11-27 10:53 | PDOC.MOPN ---
Interval History: Patient denies complaints. No bleeding noted. - Vital Signs Vital Signs: Vital Signs (12 hours) Temp BP Pulse Ox 11/27/18 08:00 100 11/27/18 07:04 99 11/27/18 07:00 98.3 F 11/27/18 04:00 98.8 F 11/27/18 02:00 98.7 F 11/27/18 00:13 112/56 L 11/27/18 00:00 98.8 F 11/26/18 23:51 100 11/26/18 23:00 98.8 F Weight Admit Weight 260 lb 4.8 oz Weight 274 lb 11.135 oz Most Recent Monitor Data Heart Rate from ECG 84 NIBP 148/79 NIBP BP-Mean 102 Respiration from ECG 21 SpO2 100 - Physical Exam General: Alert, Oriented x3, No acute distress HEENT: Atraumatic, PERRLA, EOMI, Mucous membr. moist/pink Lungs: Clear to auscultation, Normal air movement Cardiovascular: Other (CT in place) Abdomen: Normal bowel sounds, Soft, No tenderness, No hepatospenomegaly, No masses Extremities: No clubbing, No cyanosis, No edema, Normal pulses, No tenderness/ swelling Skin: No rashes, No breakdown, No significant lesion Neurological: Normal gait, Normal speech, Strength at 5/5 X4 ext, Normal tone, Sensation intact, Cranial nerves 3-12 NL, Reflexes 2+ Psych/Mental Status: Mental status NL, Mood NL - Labs Result Diagrams: 11/27/18 05:00 11/27/18 05:00 Lab results: Laboratory Results - last 24 hr 11/27/18 05:00: WBC 8.6, RBC 3.99 L, Hgb 8.8 L, Hct 28.1 L, MCV 70.4 L, MCH 22.0 L, MCHC 31.2 L, RDW 22.9 H, Plt Count 236, MPV 4.9 L, Neutrophils % 91.4 H , Neutrophils % (Manual) Not Reportable, Lymphocytes % 5.0 L, Monocytes % 3.5, Eosinophils % 0.1, Basophils % 0.0, Neutrophils # 7.9 H, Lymphocytes # 0.4 L, Monocytes # 0.3, Eosinophils # 0.0, Basophils # 0.0 11/27/18 05:00: Sodium 137, Potassium 4.6, Chloride 107, Carbon Dioxide 24, Anion Gap 11, BUN 15, Creatinine 0.93, Estimated GFR (MDRD) 64, Glucose 121 H, Calcium 8.8 11/25/18 11:30: Blood Type A NEGATIVE, Antibody Screen NEGATIVE, Crossmatch See Detail Status: lab reviewed by me A/P - Problem (1) Iron deficiency anemia Current Visit: Yes Code(s): D50.9 - IRON DEFICIENCY ANEMIA, UNSPECIFIED Status: Acute - Plan Plan: 1. IV iron today 2. CBC in am 3. outpatient GI workup 4. STEFFANY likely secondary to menses, anemic for over 10 years
[2018-11-27] MEDS: Montelukast Sodium 10 mg Tablet PO SCH (21:09)
[2018-11-27] MEDS: Simvastatin 5 MG TAB PO SCH (21:10)
[2018-11-27] MEDS: Iron, Sodium Ferric Gluconate 250 MG in Sodium Chloride 0.9% 250 ML 250 ML IVPB SCH (21:11)
[2018-11-28] MEDS: Ketorolac Tromethamine 30 MG/ML VIAL IVP SCH (03:55)
[2018-11-28] MEDS: Sodium Chloride 0.9% 1,000 ML IV SCH ×2 (07:17→17:45)
[2018-11-28] MEDS: HYDROcodone/Acetaminophen 5/325 mg Tablet PO PRN ×3 (08:33→21:14)
[2018-11-28] MEDS: Aspirin Chewable 81 MG TAB PO SCH (08:33)
[2018-11-28] MEDS: Docusate 100 MG CAP PO SCH ×2 (08:35→21:11)
[2018-11-28] MEDS: Loratadine 10 MG TAB PO SCH (08:36)
[2018-11-28 08:40] LABS: #Eosinphils 0.2 thou/uL (0.0-0.7); #Lymphocytes 0.9 thou/uL (1.20-3.40); #Monocytes 0.4 thou/uL (0.11-0.59); #Neutrophils 5.9 thou/uL (1.40-6.50); %Basophils 0.2 % (0.0-1.0); %Eosinophils 2.8 % (0.0-10.0); %Lymphocytes 12.3 % (21.0-51.0); %Monocytes 5.9 % (0.0-10.0); %Neutrophils 78.8 % (42.0-75.0); Hemoglobin 8.1 g/dL (12.0-16.0); Mean Corpuscular Hemoglobin 22.1 pg (27.0-31.0); Mean Corpuscular Volume 71.3 fL (78.0-98.0); Platelet Count 199 thou/uL (130-400); RBC Distribution Width 23.6 % (11.5-14.5); Red Blood Cell (RBC) Count 3.68 mill/uL (4.20-5.40); White Blood Cell (WBC) Count 7.5 thou/uL (4.8-10.8)
[2018-11-28 08:57] LABS: Anisocytosis SLIGHT = 6-15 cells (100X) (0-5/hpf); Hypochromia SLIGHT = 6-15 cells (100X) (0-5/hpf); MDiff Complete? YES; Microcytosis SLIGHT = 6-15 cells (100X) (0-5/hpf); Platelet Morphology Comment Appears Adequate
[2018-11-28] MEDS ORDERED: Ibuprofen 800 MG TAB PO PRN (09:00)
[2018-11-28] MEDS: Lisinopril 10 MG TAB PO SCH (21:10)
[2018-11-28] MEDS: Montelukast Sodium 10 mg Tablet PO SCH (21:11)
[2018-11-28] MEDS: Simvastatin 5 MG TAB PO SCH (21:11)
[2018-11-28] MEDS: FLUoxetine HCl 20 MG CAP PO SCH (21:11)
[2018-11-29] MEDS: Sodium Chloride 0.9% 1,000 ML IV SCH (06:21)
[2018-11-29] MEDS: Aspirin Chewable 81 MG TAB PO SCH (08:28)
[2018-11-29] MEDS: Loratadine 10 MG TAB PO SCH (08:28)
[2018-11-29] MEDS: HYDROcodone/Acetaminophen 5/325 mg Tablet PO PRN ×2 (08:29→13:27)
[2018-11-29] MEDS ORDERED: Montelukast Sodium 10 mg Tablet PO SCH (09:00)
[2018-11-29] MEDS: Docusate 100 MG CAP PO SCH (13:34)
[2018-11-29 15:33] VITALS: BP 119/79; TEMP 98.7
--- NOTE | 2018-11-29 16:39 | DIS ---
DATE OF ADMISSION: 11/25/2018 DATE OF DISCHARGE: 11/29/2018 PRINCIPAL DIAGNOSIS: Anterior mediastinal mass (ectopic thyroid tissue). SECONDARY DIAGNOSIS: Symptomatic microcytic anemia consistent with iron deficiency anemia. PROCEDURES PERFORMED: Excision of anterior mediastinal mass via median sternotomy. HISTORY OF PRESENT ILLNESS AND HOSPITAL COURSE: The patient is a 53-year-old woman with apparently a known anterior mediastinal mass that caused her little concern until at one of her multiple presentations with chest pain and/or shortness of breath. She was told about a lump on her lung. CT scanning showed a rather large anterosuperior mediastinal mass that was of irregular consistency with scattered calcifications. It was causing a bowstringing distention or distortion of the left innominate vein and though close proximity to the cervical thyroid, it appeared to be distinct and separate from it. She complained of profound weakness and "feeling awful." At that time that she had her preoperative laboratory studies done and was seen that compared to her baseline hemoglobin of 9 or 10 range, hemoglobin had drifted down into the 7s. It had been about 2 years since she had regular menses, although the previous month she had a little bit of spotting. She denied any hematemesis, hematochezia, or melena. A rectal exam done immediately prior to her procedure revealed no palpable masses within reach of my finger, and brown stool that was guaiac negative. Reticulocyte count was 2.5. Her iron studies showed iron level of 19 with a ferritin of less than 2, a total iron binding capacity of 403, and ferritin of 322. She was given intravenous iron as well as being transfused 2 units of packed red blood cells preoperatively and one perioperatively. 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 She had a relatively uncomplicated postoperative course. Shewas transferred out of the intensive care unit on postoperative day. On postoperative day two, when she for the first time tried to get up out of bed, postoperatively she had orthostatic symptoms and an orthostatic change in her blood pressure. Repeat hemoglobin was still in the low 8s and she responded well to administration of fluid. She had no further orthostatic symptoms. Her drain was removed on the morning of postoperative day 3, and she was discharged home in good condition. Job ID: [id number]
== END 2018-11-29 17:24 | disposition home or self-care (01) | DRG 629 ==
LOC: ONC 15:35 → CCU 11-26 13:46 → ONC 11-26 13:52 → CCU 11-26 13:53 → SURG A 11-27 14:24
PROVIDERS: ADMIT Thoracic Surgery (Cardiothoracic Vascular Surgery); ATTEND Thoracic Surgery (Cardiothoracic Vascular Surgery)
PROC: 0WBC0ZZ Excision of Mediastinum, Open Approach (ICD-10-PCS; principal; 2018-11-25)
PROC: 30233N1 Transfusion of Nonautologous Red Blood Cells into Peripheral Vein, Percutaneous Approach (ICD-10-PCS; 2018-11-25)
PROC: 02HV33Z Insertion of Infusion Device into Superior Vena Cava, Percutaneous Approach (ICD-10-PCS; 2018-11-26)
PROC: 04HY32Z Insertion of Monitoring Device into Lower Artery, Percutaneous Approach (ICD-10-PCS; 2018-11-26)
PROC: 4A133B1 Monitoring of Arterial Pressure, Peripheral, Percutaneous Approach (ICD-10-PCS; 2018-11-26)
PROC: 4A133J1 Monitoring of Arterial Pulse, Peripheral, Percutaneous Approach (ICD-10-PCS; 2018-11-26)
DX: Q89.2 Congenital malformations of other endocrine glands (principal); Z68.42 Body mass index [BMI] 45.0-49.9, adult; D50.9 Iron deficiency anemia, unspecified; I10 Essential (primary) hypertension; I25.10 Atherosclerotic heart disease of native coronary artery without angina pectoris; K21.9 Gastro-esophageal reflux disease without esophagitis; J45.909 Unspecified asthma, uncomplicated; F31.9 Bipolar disorder, unspecified; K59.00 Constipation, unspecified; E66.01 Morbid (severe) obesity due to excess calories; E78.5 Hyperlipidemia, unspecified; F41.9 Anxiety disorder, unspecified; Z98.51 Tubal ligation status; Z91.14 Patient's other noncompliance with medication regimen
CPT/HCPCS: 36415; 36430; 71045; 71046; 80048; 80053; 82274; 82607; 82728; 82746; 83540; 83550; 84466; 85025; 85027; 85046; 85610; 85730; 86850; 86900; 86901; 88307; 88331; 88332; 93005; 93010; J0690; J1885; J1940; J2250; J2550; J2916; J3010; J3370; J7050; P9016; P9045